=== PATIENT | female | born 1940 | race Caucasian/White ===

== ENCOUNTER → 2025-04-20 11:38 | Outpatient (REF) | payer MEDICARE, SELFPAY | LOC: RAD 11:38 | PROVIDERS: ATTENDING PHYSICIAN Internal Medicine | DX: R63.4 Abnormal weight loss (principal) | CPT/HCPCS: 71046 ==

== ENCOUNTER 2025-06-29 16:10 | Emergency (ER) | payer MEDICARE, SELFPAY ==
[2025-06-29 16:12] VITALS: BP 171/109
[2025-06-29 16:39] LABS: Hematocrit 43.3 % (37.0-47.0); Hemoglobin 13.9 g/dL (12.0-16.0); Mean Corp Hgb Conc. 32.1 g/dL (33.0-37.0); Mean Corpuscular Volume 90.4 fL (81.0-99.0); Nucleated Red Blood Cells % 0 %; Platelet Count 354 10^3/uL (130-400); Red Cell Dist. Width 15.2 % (11.5-14.5)
[2025-06-29 16:48] LABS: Urine Character Slightly Cloudy (Clear)
[2025-06-29 16:49] LABS: ALT (SGPT) < 10 U/L (0-35); AST (SGOT) 19 U/L (14-36); Albumin 4.7 g/dl (3.5-5.0); Alkaline Phosphatase 74 U/L (38-126); Blood Urea Nitrogen 19 mg/dl (7-17); Calcium 10.0 mg/dl (8.4-10.2); Carbon Dioxide 29 mmol/L (22-30); Chloride 107 mmol/L (98-107); Glucose 96 mg/dl (70-99); Potassium 4.4 mmol/L (3.5-5.1); Sodium 142 mmol/L (135-145); Total Protein 7.8 g/dl (6.3-8.2); eGFR > 60.00
[2025-06-29 17:00] LABS: Troponin I < 0.012 ng/ml
[2025-06-29 17:45] LABS: Urine Squamous Cell >30 /LPF (Few)
[2025-06-29 17:46] LABS: Urine White Cell 50-60 /HPF (0-5)
[2025-06-29 20:00] VITALS: BP 115/85
[2025-06-29 20:19] VITALS: BMI 22.9
--- NOTE | 2025-06-29 20:30 | ED.GENMED ---
History of Present Illness
General
Chief Complaint: Breathing Problem
Time Seen by Provider: 06/29/25 19:59
History of Present Illness
History of Present Illness:
84-year-old female with history of COPD and Parkinson's presents to the emergency department for evaluation of postnasal drip and occasional choking on mucus. The patient states several weeks ago she had 'a bad cold'. States that the cough is
since resolved but she has frequent postnasal drip that is difficult for her to swallow. She denies any coughing or shortness of breath at this time. Has tried [id number]-pik-[id number] allergy medicine as well as mucolytic's without relief. Went to see
her primary care physician today also notes that while filling out paperwork she had a several minute episode of diplopia, she is not able to give significant details regarding this and states it resolves quickly. She is uncertain if it was
binocular or monocular. Has not recurred since that time. No associated headache with it. Denies any postprandial coughing
Review of Systems
Review of Systems
Allergies reviewed?: Yes
All Other Systems: ROS reviewed and negative except as documented in HPI and ROS
Phy Exam
Physical Exam
Physical Exam:
GEN: Well appearing, NAD, WDWN
HEENT: Oral mucosa moist, no scleral icterus. Mild clear postnasal drainage noted, no nasal mucosal edema
Cardiac: Regular rate and rhythm no murmurs
Lung: No respiratory distress, no tachypnea lungs clear to auscultation bilaterally
MSK: No gross deformity or injuries
Skin: Good color, no pallor or jaundice, no rashes
Neuro: AO x3, cranial nerves II through XII grossly intact, normal extraocular motion and normal visual crandall bilaterally, moves all extremities freely
Psych: Calm, cooperative
Scores
Heart Failure Risk
Heart Failure Risk Score: Not Applicable
Course
Orders/Labs/Results
Orders:
Orders
06/29/25 16:18
Electrocardiogram (*1) Urgent
Reason for Study: Vertigo / Dizzy
CT Head W/o Iv Contrast Urgent
Comment:
Reason For Exam: double vision R eye, dizzy
06/29/25 16:19
EKG- Treatment ONCE
06/29/25 16:28
Complete Blood Count/With Diff Urgent
Comprehensive Metabolic Panel Urgent
NT-proBNP Urgent
Troponin I Urgent
Urinalysis Reflex To Culture Urgent
Date Specimen was Collected: 06/29/25
Time Specimen was Collected: 16:19
Urine Microscopic Reflex Cult Urgent
Urine Culture Urgent
KATHY Source: U
Specimen Description:
Date Specimen was Collected: 06/29/25
Time Specimen was Collected: 16:19
Abnormal Lab Results
06/29/25
16:28
MCHC 32.1 L g/dL
(33.0-37.0)
RDW 15.2 H %
(11.5-14.5)
Absolute Monos (auto) 0.8 H 10^3/uL
(0.1-0.6)
BUN 19 H mg/dl
(7-17)
Ur Occult Blood Reflex 2+ A
(Negative)
Leukocyte Esterase Rfl 3+ A
(Negative)
Urine RBC 7-10 A /HPF
(0-2)
Urine WBC (Reflex) 50-60 A /HPF
(0-5)
Urine Bacteria (Reflex) Moderate A
(Negative)
Urine Albumin (Reflex) 1+ A
(Neg - Trace)
06/29/25 16:28
06/29/25 16:28
Vital Signs
Initial and Last Documented VS:
Initial Vital Signs
Temp Pulse Resp BP Pulse Ox
98.1 F 71 18 171/109 95
06/29/25 16:12 06/29/25 16:12 06/29/25 16:12 06/29/25 16:12 06/29/25 16:12
Last Documented Vital Signs
Temp Pulse Resp BP Pulse Ox
98.1 F 62 26 147/67 95
06/29/25 16:12 06/29/25 20:51 06/29/25 20:51 06/29/25 20:51 06/29/25 20:30
MDM/Problems Addressed
MDM/Problems Addressed:
In regards to her cough she has significant clear postnasal rhinorrhea thus I see no indication for antibiotics as this likely does not represent bacterial rhinosinusitis. Will trial nasal anticholinergics for relief. In regards to her transient
diplopia she has no focal neurologic deficits at this time and CT of the head is reassuring. Given that she has no present symptoms this may have been a transient ophthalmologic phenomenon versus a transient cranial nerve palsy, low clinical
suspicion for CVA in this case given the very brief nature
*Pulse Oximetry
SaO2: 95
Oxygen Mode of Delivery: Room air
Patient hypoxic: no
*Critical Care Note
Total Time (30-74mins, 75-104mins- exclusive of procedures): Not Applicable
ED Attending Note
-
Portions of this chart may have been created with voice recognition software.� Occasional wrong word or��sound alike� substitutions may have occurred due to the inherent limitations of voice recognition software.
Discharge Plan
Departure
Patient Disposition: Home (Routine Discharge)
Date of Disposition: 06/29/25
Time of Disposition: 20:30
Patient with high blood pressure during this ER visit?: No
Discharge Problem:
Post-nasal drip
Instructions: Cough, runny nose, and colds
Prescriptions:
New
ipratropium bromide 42 mcg (0.06 %) spray,non-aerosol
2 spray intranasal TID Qty: 15 0RF
Activity Restrictions/Additional Instructions:
Return to the ER if your symptoms worsen
Interventions
Interventions:
*Risk Screen - Suicide Last Done: 06/29/25 16:12
*General Assessment Last Done: 06/29/25 16:12
*Neglect/Abuse Screening Last Done: 06/29/25 20:20
*ED- Fall Risk Assessment Last Done: 06/29/25 20:20
*ED COVID-19 Vaccine History Last Done: 06/29/25 16:12
*Nursing Disposition Last Done: 06/29/25 22:01
ED- Cardiac Assessment Last Done: 06/29/25 20:38
ED- Pulmonary Assessment Last Done: 06/29/25 20:38
Discharge Date and Time
Discharge Date/Time: 06/29/25 21:20
Print Language: [place]
[2025-06-29 20:51] VITALS: BP 147/67
== END 2025-06-29 21:20 | disposition home or self-care (01) ==
LOC: EMR 16:10
PROVIDERS: Student in an Organized Health Care Education/Training Program; EMERGENCY PHYSICIAN Emergency Medicine; FAMILY PHYSICIAN Internal Medicine
DX: R09.82 Postnasal drip (principal); G20.A1 Parkinson's disease without dyskinesia, without mention of fluctuations; J44.9 Chronic obstructive pulmonary disease, unspecified
CPT/HCPCS: 99284; 70450; 80053; 81003; 81015; 83880; 84484; 85025; 87086; 93005